=== PATIENT | male | born 1975 ===

== ENCOUNTER 2018-02-17 07:10 | Day surgery (SDC) | payer OTHER ==
[~2018-02-17] VITALS: Ht 177.8 cm; Wt 94.8 kg
[2018-02-17 07:46] VITALS: BP 116/75
[2018-02-17 12:40] VITALS: BP 121/84
== END 2018-02-17 12:20 | disposition home or self-care (01) ==
LOC: DS 07:10 → OR 09:00 → DS 09:00
PROVIDERS: Neuromusculoskeletal Medicine, Sports Medicine
PROC: 0PBF0ZZ Excision of Right Humeral Shaft, Open Approach (ICD-10-PCS; 2018-02-17)
PROC: 0PBC0ZZ Excision of Right Humeral Head, Open Approach (ICD-10-PCS; principal; 2018-02-17 09:00)
DX: M77.11 Lateral epicondylitis, right elbow (principal)
CPT/HCPCS: J0690; J1170; J2405; J2704; J3010; J3490; J7120